=== PATIENT | female | born 1955 | race Caucasian/White ===

== ENCOUNTER 2018-11-07 11:19 | Outpatient (CLI) | payer MEDICARE, OTHER ==
[2018-11-07 12:01] LABS: MEAN CORPUSCULAR HEMOGLOBIN 30.1 pg (28.0-34.0)
[2018-11-07 12:02] LABS: PLT EST. EST. AGREES W/PLT CT
[2018-11-07 12:03] LABS: EOSINOPHILS % 1 % (0-7); MONOCYTES % 5 % (0-11); SEGMENTED NEUTROPHILS % 69 % (39-79)
[2018-11-07 12:09] LABS: eGFR (Non-African) > 60
[2018-11-07 17:00] LABS: APPEARANCE,URINE CLEAR (CLEAR); COLOR,URINE AMBER (YELLOW)
[2018-11-07 17:01] LABS: OCCULT BLOOD,URINE 1+ (NEGATIVE); UROBILINOGEN URINE 0.2 Eu (0.2-1.0)
[2018-11-07 17:03] LABS: YEAST,URINE FEW (NEGATIVE)
== END 2018-11-07 11:25 ==
LOC: LAB 11:19
PROVIDERS: ATTEND Nurse Practitioner Family
DX: E03.4 Atrophy of thyroid (acquired) (principal); R07.9 Chest pain, unspecified; M79.18 Myalgia, other site; I49.9 Cardiac arrhythmia, unspecified; R06.02 Shortness of breath
CPT/HCPCS: 36415; 80053; 81002; 83615; 84439; 84443; 84550; 85025; 85651